=== PATIENT | male | born 1980 | race Caucasian/White ===

== ENCOUNTER 2019-05-24 10:52 | Emergency (ER) | payer OTHER ==
[2019-05-24 11:18] VITALS: TEMP 98
[2019-05-24] MEDS ORDERED: ONDANSETRON 4 MG ODT STARTER PACK 2 TAB BTL PO STA (11:48)
[2019-05-24] MEDS ORDERED: LOPERAMIDE 2 MG CAP PO STA (11:50)
--- NOTE | 2019-05-24 12:02 | ED ---
Abdominal Pain HPI - General Chief Complaint: Abdominal Pain Stated Complaint: abdominal pain Time Seen by Provider: 05/24/19 11:28 Source: patient, RN notes reviewed, old records reviewed Mode of arrival: ambulatory Limitations: no limitations - History of Present Illness Initial Comments: Patient is a 38-year-[facility] He presents today with complaints of vomiting and diarrhea for the past 8 days. Patient states prior to going to [place] he was at [facility]. Patient states that he was that he picked something up and he is here. No recent antibiotic use. Patient states that he feels like he is losing weight. - Related Data Previous Rx's Medication Instructions Recorded Loperamide [Imodium] 2 mg PO QID #20 capsule 05/24/19 Ondansetron Odt [Zofran Odt] 4 mg PO Q8HR PRN #12 tab 05/24/19 Allergies Allergy/AdvReac Type Severity Reaction Status Date / Time No Known Allergies Allergy Verified 05/24/19 11:18 Review of Systems ROS Statement: Those systems with pertinent positive or pertinent negative responses have been documented in the HPI. ROS Other: All systems not noted in ROS Statement are negative. Past Medical History Past Medical History: No Reported History History of Any Multi-Drug Resistant Organisms: MRSA Date of last positivie culture/infection: 2009 Past Surgical History: Orthopedic Surgery Past Psychological History: No Psychological Hx Reported Smoking Status: Current every day smoker Past Alcohol Use History: Abuse, Daily Past Drug Use History: Heroin, Methamphetamine General Exam - General Exam Comments Initial Comments: 38-year-old male. Patient on room. Patient appears in no distress. Limitations: no limitations General appearance: alert, in no apparent distress Head exam: Present: atraumatic, normocephalic, normal inspection Eye exam: Present: normal appearance, PERRL, EOMI. Absent: scleral icterus, conjunctival injection, periorbital swelling ENT exam: Present: normal exam, mucous membranes moist Neck exam: Present: normal inspection. Absent: tenderness, meningismus, lymphadenopathy Respiratory exam: Present: normal lung sounds bilaterally. Absent: respiratory distress, wheezes, rales, rhonchi, stridor Cardiovascular Exam: Present: regular rate, normal rhythm, normal heart sounds. Absent: systolic murmur, diastolic murmur, rubs, gallop, clicks GI/Abdominal exam: Present: soft, normal bowel sounds. Absent: distended, tenderness, guarding, rebound, rigid Extremities exam: Present: normal inspection, full ROM, normal capillary refill. Absent: tenderness, pedal edema, joint swelling, calf tenderness Back exam: Present: normal inspection Neurological exam: Present: alert, oriented X3, CN II-XII intact Psychiatric exam: Present: normal affect, normal mood, manic Skin exam: Present: warm, dry, intact, normal color. Absent: rash Course Vital Signs 05/24/19 11:14 Temperature 98.0 F Pulse Rate 93 Respiratory 16 Rate Blood Pressure 106/66 O2 Sat by Pulse 98 Oximetry Medical Decision Making - Medical Decision Making 38-year-old male presents today with vomiting and diarrhea for the past 8 days. Patient is currently an extended treatment at [facility]. At this time patient's abdomen is soft nontender. He appears somewhat manic. Patient also had a episode of diarrhea in emergency room. Stool culture completed. I discussed treatment for gastritis with nausea medicine. He does not appear dehydrated or have any tenderness to return for any significant abdominal process. Patient was discharged after receiving Zofran and Imodium. Patient was eating pizza, drinking pop and soda and coffee in exam room. - Lab Data Lab Results 05/24/19 Range/Units 12:06 Urine Color Yellow Urine Appearance Clear (Clear) Urine pH 5.5 (5.0-8.0) Ur Specific [place] 1.025 (1.001-1.035) Urine Protein Trace H (Negative) Urine Glucose (UA) Negative (Negative) Urine Ketones Negative (Negative) Urine Blood Negative (Negative) Urine Nitrite Negative (Negative) Urine Bilirubin Negative (Negative) Urine Urobilinogen <2.0 (<2.0) mg/dL Ur Leukocyte Esterase Negative (Negative) Disposition Clinical Impression: Gastroenteritis Disposition: HOME SELF-CARE Condition: Good Instructions (If sedation given, give patient instructions): Gastroenteritis (ED) Additional Instructions: Patient advised to follow-up with primary care doctor. Take the nausea medicine and ancillary medicine as prescribed. Clear liquid diet. Have follow- up with your regular doctor awaiting stool culture testing. Prescriptions: Loperamide [Imodium] 2 mg PO QID #20 capsule Ondansetron Odt [Zofran Odt] 4 mg PO Q8HR PRN #12 tab PRN Reason: Nausea Is patient prescribed a controlled substance at d/c from ED?: No Referrals: None,Stated [Primary Care Provider] - 1-2 days Time of Disposition: 13:22
[2019-05-24 12:37] LABS: Appearance,Urine Clear (Clear); Bilirubin,Urine Negative (Negative); Blood,Urine Negative (Negative); Color,Urine Yellow; Glucose,Urine (UA) Negative (Negative); Ketones,Urine Negative (Negative); Leukocyte Esterase,Urine Negative (Negative); Nitrite,Urine Negative (Negative); PH, Urine 5.5 (5.0-8.0); Protein,Urine Trace (Negative); Specific Gravity,Urine 1.025 (1.001-1.035); Urobilinogen,Urine <2.0 mg/dL (<2.0)
[2019-05-24 13:39] VITALS: BP 112/72; PULSE 68; RESP 18
== END 2019-05-24 13:39 | disposition home or self-care (01) ==
LOC: EC 10:52
DX: K52.9 Noninfective gastroenteritis and colitis, unspecified (principal); F17.200 Nicotine dependence, unspecified, uncomplicated
CPT/HCPCS: 81003; 87324; 87045; 87046; 99284; S0119